=== PATIENT | male | born 1955 | race African-American/Black ===

== ENCOUNTER 2024-07-05 18:42 | Inpatient (IN) | payer MEDICARE ==
[~2024-07-05] VITALS: Ht 182.9 cm; Wt 95.3 kg
[~2024-07-05 18:42] MED LIST: ASPI-1406 PO; ATOR40TA70 PO; CLOP-31 PO; FERR325T6 PO; METF-414 PO; METO25TA6 PO; NIFE90TA60 PO
[2024-07-05 20:00] VITALS: BP 163/50; PULSE 61; RESP 19; TEMP 36.4; O2SAT 100
[2024-07-05 21:00] VITALS: BP 160/101; PULSE 61; RESP 18; TEMP 36.5
[2024-07-05] MEDS ORDERED: HYDROXYCHLOROQUINE SULFATE 200MG TABLET PO SCH (21:00)
[2024-07-05] MEDS ORDERED: ACETAMINOPHEN 325MG TABLET PO PRN (21:30)
[2024-07-05] MEDS ORDERED: ONDANSETRON HCL 4MG/2ML INJ IV PRN (21:30)
[2024-07-05] MEDS ORDERED: DEXTROSE 50% WATER 50ML SYRINGE IV SCH (21:30)
[2024-07-05] MEDS ORDERED: DEXTROSE 50% WATER 50ML SYRINGE IV PRN (21:30)
[2024-07-05] MEDS ORDERED: ONDANSETRON HCL 4MG TABLET PO PRN (21:30)
[2024-07-05] MEDS: PREDNISONE 20MG TABLET PO SCH (23:39)
[2024-07-05] MEDS: HYDROXYCHLOROQUINE SULFATE 200MG TABLET PO SCH (23:40)
[2024-07-05] MEDS: PANTOPRAZOLE 40MG DR TABLET PO SCH (23:40)
[2024-07-05] MEDS: DICLOFENAC SODIUM 75MG DR TABLET PO SCH (23:40)
[2024-07-05] MEDS: METOPROLOL TARTRATE 25MG TABLET PO SCH (23:41)
[2024-07-05] MEDS: HYDRALAZINE HCL 25MG TABLET PO SCH (23:41)
[2024-07-06] VITALS: BP 163/59; PULSE 61; RESP 19; TEMP 36.4; O2SAT 100
[2024-07-06] MEDS ORDERED: SODIUM CHLORIDE 0.45% 1,000 ML IV SCH
[2024-07-06] MEDS ORDERED: METHYLPREDNISOLONE SOD SUCC 125MG/2ML (ACT-O-VIAL) IV SCH
[2024-07-06 04:00] VITALS: BP 145/65; PULSE 60; RESP 20; TEMP 36.6; O2SAT 100
[2024-07-06] MEDS: SUCRALFATE 1G TABLET PO SCH (05:46)
[2024-07-06] MEDS: BLOOD SUGAR DIAGNOSTIC STRIP TEST SCH (06:00)
[2024-07-06 06:40] LABS: BASOPHILS % 0.1 % (0.0-2.0); HEMATOCRIT. 34.7 % (42.0-52.0); HEMOGLOBIN. 11.4 g/dL (14.0-18.0); LYMPHOCYTES % 8.5 % (20.0-50.0); MEAN CORPUSCULAR HEMOGLOBIN 28.6 pg (28.0-32.0); MEAN CORPUSCULAR HGB CONC 32.7 g/dL (31.0-37.0); MEAN CORPUSCULAR VOLUME 87.5 fL (80.0-94.0); MONOCYTES % 3.9 % (2.0-8.0); NEUTROPHILS % 87.5 % (40.0-76.0); PLATELET 361 x1000/uL (130-400); RED BLOOD CELL COUNT 3.97 mill/uL (4.7-6.1); RED CELL DISTRIBUTION WIDTH 14.2 % (11.6-14.6); WHITE BLOOD COUNT 13.6 x1000/uL (4.5-11.0)
[2024-07-06 06:45] LABS: CHLORIDE 104 mEq/L (98-107); POTASSIUM 4.3 mEq/L (3.5-5.1); SODIUM 140 mEq/L (136-145)
[2024-07-06 06:47] LABS: CARBON DIOXIDE 29 mEq/L (21-32)
[2024-07-06 06:52] LABS: CREATININE 0.7 mg/dL (0.6-1.3); GLUCOSE 117 mg/dL (70-105); UREA NITROGEN BLOOD 41 mg/dL (9-23)
[2024-07-06 06:54] LABS: ALANINE AMINOTRANSFERASE 241 IU/L (10-49); ALBUMIN 3.3 g/dL (3.2-4.8); ASPARTATE AMINOTRANSFERASE 167 IU/L (<34); PREALBUMIN 16.4 mg/dl (10.0-40.0)
[2024-07-06 06:55] LABS: BILIRUBIN TOTAL 0.4 mg/dL (0.1-1.0); PROTEIN TOTAL 6.6 g/dL (6.0-8.3)
[2024-07-06] MEDS: FUROSEMIDE 20MG/2ML VIAL IVP SCH (07:03)
[2024-07-06 07:05] LABS: CREATINE KINASE 2202 IU/L (46-171)
[2024-07-06 08:00] VITALS: BP 150/51; PULSE 58; RESP 18; TEMP 36.7; O2SAT 98
[2024-07-06] MEDS ORDERED: SODIUM CHLORIDE 0.9% 1,000 ML IV SCH (08:30)
[2024-07-06] MEDS: ASPIRIN 81MG TABLET PO SCH (08:32)
[2024-07-06] MEDS: FOLIC ACID 1MG TABLET PO SCH (08:34)
[2024-07-06] MEDS: FAMOTIDINE 20MG TABLET PO SCH (08:36)
[2024-07-06] MEDS: INSULIN LISPRO 100 UNITS/ML SUBCUT SCH (08:40)
[2024-07-06] MEDS ORDERED: DICLOFENAC SODIUM 75MG DR TABLET PO SCH (09:00)
[2024-07-06] MEDS ORDERED: FOLIC ACID 1MG TABLET PO SCH (09:00)
[2024-07-06] MEDS ORDERED: DEXTROSE 50% WATER 50ML SYRINGE IV PRN (12:30)
[2024-07-06] MEDS: CLOPIDOGREL 75MG TABLET PO SCH (16:27)
[2024-07-06] MEDS: LOSARTAN 25 MG TABLET PO SCH (18:26)
[2024-07-06 20:00] VITALS: BP 140/59; PULSE 59; RESP 17; TEMP 35.6; O2SAT 100
[2024-07-07 08:00] VITALS: BP 147/60; PULSE 51; RESP 19; TEMP 36.5; O2SAT 98
[2024-07-07 08:13] LABS: EOSINOPHILS % 0.1 % (0.0-5.0); HEMATOCRIT. 35.8 % (42.0-52.0); HEMOGLOBIN. 11.8 g/dL (14.0-18.0); LYMPHOCYTES % 12.9 % (20.0-50.0); MEAN CORPUSCULAR HEMOGLOBIN 28.8 pg (28.0-32.0); MEAN CORPUSCULAR HGB CONC 32.9 g/dL (31.0-37.0); MEAN CORPUSCULAR VOLUME 87.4 fL (80.0-94.0); MEAN PLATELET VOLUME 9.4 fl (7.4-10.4); MONOCYTES % 2.1 % (2.0-8.0); NEUTROPHILS % 84.9 % (40.0-76.0); PLATELET 354 x1000/uL (130-400); WHITE BLOOD COUNT 9.9 x1000/uL (4.5-11.0)
[2024-07-07] MEDS: FUROSEMIDE 20MG TABLET PO SCH (08:18)
[2024-07-07 08:26] LABS: CHLORIDE 102 mEq/L (98-107); POTASSIUM 4.7 mEq/L (3.5-5.1); SODIUM 142 mEq/L (136-145)
[2024-07-07 08:27] LABS: CARBON DIOXIDE 32 mEq/L (21-32)
[2024-07-07 08:32] LABS: CREATININE 0.7 mg/dL (0.6-1.3); GLUCOSE 116 mg/dL (70-105); UREA NITROGEN BLOOD 36 mg/dL (9-23)
[2024-07-07 08:34] LABS: ALANINE AMINOTRANSFERASE 235 IU/L (10-49); ALBUMIN 3.4 g/dL (3.2-4.8); ASPARTATE AMINOTRANSFERASE 149 IU/L (<34); BILIRUBIN DIRECT 0.1 mg/dL (<=3.0); BILIRUBIN TOTAL 0.4 mg/dL (0.1-1.0); PROTEIN TOTAL 6.7 g/dL (6.0-8.3); THYROID STIMULATING HORMONE 1.57 uIU/mL (0.55-4.78)
[2024-07-07 11:31] LABS: CALCIUM 9.2 mg/dL (8.7-10.4)
[2024-07-07 11:49] LABS: CREATINE KINASE 1989 IU/L (46-171)
[2024-07-07 20:00] VITALS: BP 146/44; PULSE 58; RESP 19; TEMP 36.5; O2SAT 97
[2024-07-08 07:16] LABS: HEMOGLOBIN. 11.8 g/dL (14.0-18.0); LYMPHOCYTES % 10.2 % (20.0-50.0); MEAN CORPUSCULAR HEMOGLOBIN 28.9 pg (28.0-32.0); MEAN CORPUSCULAR HGB CONC 32.9 g/dL (31.0-37.0); MEAN CORPUSCULAR VOLUME 87.9 fL (80.0-94.0); MEAN PLATELET VOLUME 9.3 fl (7.4-10.4); MONOCYTES % 2.2 % (2.0-8.0); NEUTROPHILS % 87.6 % (40.0-76.0); PLATELET 336 x1000/uL (130-400); RED CELL DISTRIBUTION WIDTH 14.1 % (11.6-14.6); WHITE BLOOD COUNT 9.3 x1000/uL (4.5-11.0)
[2024-07-08 07:22] LABS: CHLORIDE 106 mEq/L (98-107); POTASSIUM 4.5 mEq/L (3.5-5.1); SODIUM 142 mEq/L (136-145)
[2024-07-08 07:24] LABS: CALCIUM 9.1 mg/dL (8.7-10.4); CARBON DIOXIDE 30 mEq/L (21-32)
[2024-07-08 07:29] LABS: CREATININE 0.6 mg/dL (0.6-1.3); GLUCOSE 139 mg/dL (70-105)
[2024-07-08 07:30] LABS: UREA NITROGEN BLOOD 38 mg/dL (9-23)
[2024-07-08 07:31] LABS: ALANINE AMINOTRANSFERASE 223 IU/L (10-49); ALBUMIN 3.2 g/dL (3.2-4.8); ASPARTATE AMINOTRANSFERASE 144 IU/L (<34)
[2024-07-08 07:32] LABS: BILIRUBIN TOTAL 0.3 mg/dL (0.1-1.0); PROTEIN TOTAL 6.1 g/dL (6.0-8.3)
[2024-07-08 07:36] LABS: BILIRUBIN DIRECT < 0.1 mg/dL (<=3.0)
[2024-07-08 08:00] VITALS: BP 172/65; PULSE 63; RESP 18; TEMP 36.6; O2SAT 100
[2024-07-08] MEDS: ERGOCALCIFEROL 50000UNITS CAPSULE PO SCH (12:19)
[2024-07-08] MEDS: ENOXAPARIN 40MG/0.4ML SYR SUBCUT SCH (14:50)
[2024-07-08 20:00] VITALS: BP 158/58; PULSE 67; RESP 18; TEMP 36.6; O2SAT 98
[2024-07-09 08:00] VITALS: BP 145/51; PULSE 59; RESP 18; TEMP 36.1; O2SAT 100
[2024-07-09 13:56] LABS: ALANINE AMINOTRANSFERASE 267 IU/L (10-49); ALBUMIN 3.5 g/dL (3.2-4.8); ASPARTATE AMINOTRANSFERASE 192 IU/L (<34); BILIRUBIN DIRECT 0.1 mg/dL (<=3.0); BILIRUBIN TOTAL 0.4 mg/dL (0.1-1.0); PROTEIN TOTAL 6.8 g/dL (6.0-8.3)
[2024-07-09 14:07] LABS: CREATINE KINASE 3243 IU/L (46-171)
[2024-07-09 20:00] VITALS: BP 165/50; PULSE 63; RESP 19; TEMP 36.7; O2SAT 99
[2024-07-10] VITALS: BP 102/56
[2024-07-10 05:32] VITALS: BP 153/53; PULSE 56
[2024-07-10 07:16] LABS: CREATINE KINASE 2478 IU/L (46-171)
[2024-07-10 07:58] VITALS: BP 150/48; PULSE 53; RESP 17; TEMP 36.6; O2SAT 100
[2024-07-10] MEDS: PREDNISONE 20MG TABLET PO SCH (09:55)
[2024-07-10 19:55] LABS: CLARITY URINE CLEAR (CLEAR); COLOR URINE YELLOW (YELLOW); GLUCOSE URINE NEGATIVE (NEGATIVE); KETONES URINE NEGATIVE (NEGATIVE); LEUKOCYTE ESTERASE URINE NEGATIVE (NEGATIVE); NITRITE URINE NEGATIVE (NEGATIVE); OCCULT BLOOD URINE NEGATIVE (NEGATIVE); PROTEIN URINE TRACE (NEGATIVE); SPECIFIC GRAVITY URINE 1.021 (1.005-1.030); UROBILINOGEN URINE 0.2 E.U./dL (0.2-1.0)
[2024-07-10 20:00] VITALS: BP 169/49; PULSE 60; RESP 18; TEMP 36.6; O2SAT 98
[2024-07-10 20:08] LABS: BACTERIA URINE NONE SEEN; RBC URINE 0-2 /hpf (0-2); SQUAMOUS EPITHELIAL CELL URINE RARE /lpf (RARE/1+); WBC URINE NONE SEEN /hpf (0-2)
[2024-07-11 08:00] VITALS: BP 139/46; PULSE 61; RESP 18; TEMP 36.6; O2SAT 95
[2024-07-11] MEDS: METHOTREXATE SODIUM 2 . 5MG TABLET PO SCH (08:14)
[2024-07-11] MEDS ORDERED: METHOTREXATE SODIUM 2 . 5MG TABLET PO SCH ×3 (09:00→22:00)
[2024-07-11 20:00] VITALS: BP 139/51; PULSE 59; RESP 17; TEMP 36.3; O2SAT 99
[2024-07-12 08:00] VITALS: BP 154/45; PULSE 64; RESP 18; TEMP 36.3; O2SAT 98
[2024-07-12 08:07] LABS: CREATINE KINASE 2283 IU/L (46-171)
[2024-07-12 20:00] VITALS: BP 123/56; PULSE 57; RESP 18; TEMP 36.4; O2SAT 99
[2024-07-13 08:00] VITALS: BP 136/79; PULSE 63; RESP 19; TEMP 36.4; O2SAT 100
[2024-07-13 20:00] VITALS: BP 130/52; PULSE 67; RESP 18; TEMP 36.7; O2SAT 99
[2024-07-14 08:00] VITALS: BP 125/80; PULSE 98; RESP 18; TEMP 36.4; O2SAT 99
[2024-07-14 13:28] LABS: EOSINOPHILS % 0.5 % (0.0-5.0); HEMATOCRIT. 34.7 % (42.0-52.0); HEMOGLOBIN. 11.2 g/dL (14.0-18.0); LYMPHOCYTES % 12.6 % (20.0-50.0); MEAN CORPUSCULAR HEMOGLOBIN 28.5 pg (28.0-32.0); MEAN CORPUSCULAR HGB CONC 32.2 g/dL (31.0-37.0); MEAN CORPUSCULAR VOLUME 88.5 fL (80.0-94.0); MONOCYTES % 8.3 % (2.0-8.0); NEUTROPHILS % 78.6 % (40.0-76.0); PLATELET 342 x1000/uL (130-400); RED BLOOD CELL COUNT 3.92 mill/uL (4.7-6.1); RED CELL DISTRIBUTION WIDTH 14.3 % (11.6-14.6); WHITE BLOOD COUNT 12.2 x1000/uL (4.5-11.0)
[2024-07-14 13:54] LABS: CHLORIDE 103 mEq/L (98-107); SODIUM 140 mEq/L (136-145)
[2024-07-14 13:55] LABS: CALCIUM 9.2 mg/dL (8.7-10.4); CARBON DIOXIDE 28 mEq/L (21-32)
[2024-07-14 14:00] LABS: CREATININE 0.5 mg/dL (0.6-1.3); GLUCOSE 115 mg/dL (70-105); UREA NITROGEN BLOOD 29 mg/dL (9-23)
[2024-07-14 14:02] LABS: ALANINE AMINOTRANSFERASE 286 IU/L (10-49); ALBUMIN 3.3 g/dL (3.2-4.8); ASPARTATE AMINOTRANSFERASE 212 IU/L (<34); BILIRUBIN TOTAL 0.5 mg/dL (0.1-1.0); CREATINE KINASE > 1300 IU/L (46-171); PROTEIN TOTAL 6.3 g/dL (6.0-8.3)
[2024-07-14 20:00] VITALS: BP 151/54; PULSE 65; RESP 18; TEMP 36.8; O2SAT 99
[2024-07-15 08:00] VITALS: BP_SYST 148; BP_SYST 149; BP_DIAS 86; BP_DIAS 88; PULSE 52; PULSE 75; RESP 18; TEMP 36.5; O2SAT 100
[2024-07-15 20:00] VITALS: BP 164/47; PULSE 64; RESP 19; TEMP 36.7; O2SAT 99
[2024-07-16] VITALS: BP 141/55; PULSE 62
[2024-07-16] MEDS: CLONIDINE 0.1MG TABLET PO PRN (05:50)
[2024-07-16 08:00] VITALS: BP 128/49; PULSE 51; RESP 19; TEMP 36.1; O2SAT 99
[2024-07-16 12:54] LABS: ALANINE AMINOTRANSFERASE 288 IU/L (10-49); ALBUMIN 3.5 g/dL (3.2-4.8); ASPARTATE AMINOTRANSFERASE 205 IU/L (<34); BILIRUBIN DIRECT 0.2 mg/dL (<=3.0); BILIRUBIN TOTAL 0.7 mg/dL (0.1-1.0); PROTEIN TOTAL 6.5 g/dL (6.0-8.3)
[2024-07-16 13:09] LABS: HEPATITIS B SURFACE ANTIGEN NEGATIVE (Negative)
[2024-07-16 13:29] LABS: HEPATITIS A AB IGM NEGATIVE (Negative)
[2024-07-16 13:30] LABS: HEPATITIS B CORE AB IGM NEGATIVE (Negative)
[2024-07-16 13:31] LABS: HEPATITIS C AB NON REACTIVE (Neg) (Negative)
[2024-07-16 20:00] VITALS: BP 115/71; PULSE 55; RESP 19; TEMP 36.3; O2SAT 100
[2024-07-17 08:00] VITALS: BP 135/41; PULSE 58; RESP 18; TEMP 36.3; O2SAT 100
[2024-07-17] MEDS ORDERED: LACTULOSE 20G/30ML UDC PO PRN (19:00)
[2024-07-17 20:00] VITALS: BP 177/64; PULSE 67; RESP 18; TEMP 36.7; O2SAT 99
[2024-07-18 08:00] VITALS: BP 165/55; PULSE 63; RESP 19; TEMP 35.9; O2SAT 100
[2024-07-18 10:02] LABS: EOSINOPHILS % 0.3 % (0.0-5.0); HEMATOCRIT. 35.4 % (42.0-52.0); HEMOGLOBIN. 11.3 g/dL (14.0-18.0); LYMPHOCYTES % 17.8 % (20.0-50.0); MEAN CORPUSCULAR HGB CONC 31.8 g/dL (31.0-37.0); MEAN CORPUSCULAR VOLUME 88.1 fL (80.0-94.0); MEAN PLATELET VOLUME 8.4 fl (7.4-10.4); MONOCYTES % 9.1 % (2.0-8.0); NEUTROPHILS % 72.8 % (40.0-76.0); PLATELET 279 x1000/uL (130-400); RED BLOOD CELL COUNT 4.02 mill/uL (4.7-6.1); RED CELL DISTRIBUTION WIDTH 14.3 % (11.6-14.6); WHITE BLOOD COUNT 12.9 x1000/uL (4.5-11.0)
[2024-07-18 10:10] LABS: CHLORIDE 103 mEq/L (98-107); SODIUM 142 mEq/L (136-145)
[2024-07-18 10:11] LABS: CALCIUM 9.3 mg/dL (8.7-10.4); CARBON DIOXIDE 31 mEq/L (21-32)
[2024-07-18 10:16] LABS: ALANINE AMINOTRANSFERASE 287 IU/L (10-49); CREATININE 0.6 mg/dL (0.6-1.3); GLUCOSE 91 mg/dL (70-105); UREA NITROGEN BLOOD 30 mg/dL (9-23)
[2024-07-18 10:17] LABS: ASPARTATE AMINOTRANSFERASE 192 IU/L (<34)
[2024-07-18 10:18] LABS: ALBUMIN 3.5 g/dL (3.2-4.8); CREATINE KINASE > 1300 IU/L (46-171)
[2024-07-18 10:19] LABS: BILIRUBIN TOTAL 0.5 mg/dL (0.1-1.0); PROTEIN TOTAL 6.6 g/dL (6.0-8.3)
[2024-07-18] MEDS: AMLODIPINE 5MG TABLET PO SCH (13:30)
[2024-07-18 20:05] VITALS: BP 146/51; PULSE 63; RESP 20; TEMP 36.1; O2SAT 100
[2024-07-19 08:00] VITALS: BP 139/48; PULSE 58; RESP 18; TEMP 35.7; O2SAT 100
[2024-07-19 09:15] VITALS: BP 162/57
[2024-07-19 09:20] VITALS: BP 205/72
[2024-07-19 11:27] LABS: MEAN PLATELET VOLUME 8.6 fl (7.4-10.4); WHITE BLOOD COUNT 12.6 x1000/uL (4.5-11.0)
[2024-07-19 11:49] LABS: BASOPHILS % 0.1 % (0.0-2.0); EOSINOPHILS % 0.4 % (0.0-5.0); HEMOGLOBIN. 11.9 g/dL (14.0-18.0); MEAN CORPUSCULAR HEMOGLOBIN 28.4 pg (28.0-32.0); MEAN CORPUSCULAR HGB CONC 32.2 g/dL (31.0-37.0); MEAN CORPUSCULAR VOLUME 88.2 fL (80.0-94.0); MONOCYTES % 9.1 % (2.0-8.0); NEUTROPHILS % 70.4 % (40.0-76.0); PLATELET 306 x1000/uL (130-400); RED CELL DISTRIBUTION WIDTH 14.6 % (11.6-14.6)
[2024-07-19 11:59] LABS: DIFFERENTIAL COMMENT 1
[2024-07-19 14:30] VITALS: BP 165/52
[2024-07-19 14:32] VITALS: BP 197/87
[2024-07-19] MEDS: LOSARTAN 100 MG TABLET PO SCH (21:00)
[2024-07-19] MEDS: AMLODIPINE 5MG TABLET PO SCH (21:00)
[2024-07-19 21:47] VITALS: BP 114/57; PULSE 63; RESP 19; TEMP 36.3; O2SAT 99
[2024-07-20 08:00] VITALS: BP 134/49; PULSE 63; RESP 18; TEMP 36.3; O2SAT 98
[2024-07-20] MEDS: PREDNISONE 20MG TABLET PO SCH (09:14)
[2024-07-20] MEDS ORDERED: ASPI-1497 MT (09:22)
[2024-07-20] MEDS ORDERED: P20 MT ×2 (09:22→10:35)
[2024-07-20] MEDS ORDERED: CLOP-31 MT (09:22)
[2024-07-20] MEDS ORDERED: FURO-152 MT (09:22)
[2024-07-20] MEDS ORDERED: LOSA-415 MT (09:22)
[2024-07-20] MEDS ORDERED: METH2.5T MT (09:22)
[2024-07-20] MEDS ORDERED: HYDR25TA78 MT (09:22)
[2024-07-20] MEDS ORDERED: AMLO5TAB88 MT (09:22)
[2024-07-20] MEDS ORDERED: HYDR200T80 MT (09:22)
[2024-07-20 09:51] LABS: BASOPHILS % 0.2 % (0.0-2.0); EOSINOPHILS % 0.4 % (0.0-5.0); HEMATOCRIT. 37.7 % (42.0-52.0); HEMOGLOBIN. 11.9 g/dL (14.0-18.0); LYMPHOCYTES % 23.6 % (20.0-50.0); MEAN CORPUSCULAR HGB CONC 31.5 g/dL (31.0-37.0); MEAN CORPUSCULAR VOLUME 88.7 fL (80.0-94.0); MEAN PLATELET VOLUME 8.4 fl (7.4-10.4); MONOCYTES % 7.8 % (2.0-8.0); PLATELET 293 x1000/uL (130-400); RED BLOOD CELL COUNT 4.25 mill/uL (4.7-6.1); RED CELL DISTRIBUTION WIDTH 14.7 % (11.6-14.6); WHITE BLOOD COUNT 11.3 x1000/uL (4.5-11.0)
[2024-07-20] MEDS ORDERED: DICL50TA9 PO (10:38)
[2024-07-20] MEDS ORDERED: FOLI-43 PO (10:39)
[2024-07-20] MEDS ORDERED: METH2.5T PO (10:40)
[2024-07-20 11:15] VITALS: BP 134/78; PULSE 88; TEMP 97.8; O2SAT 98
[2024-07-20] MEDS ORDERED: DICL75TA5 PO (12:10)
[2024-07-20] MEDS ORDERED: HYDRALAZINE 20MG/ML VIAL IV PRN (15:45)
[2024-07-20 19:53] VITALS: BP 109/70; PULSE 56; RESP 20; TEMP 36.1; O2SAT 99
[2024-07-21 08:00] VITALS: BP 158/46; PULSE 65; RESP 19; TEMP 36.1; O2SAT 100
[2024-07-21 14:30] VITALS: BP_SYST 153; BP_SYST 219; BP_DIAS 48; BP_DIAS 80
[2024-07-21] MEDS: HYDRALAZINE 10 MG in SODIUM CHLORIDE 0.9% 49.5 ML IV PRN (15:48)
[2024-07-21 17:43] VITALS: BP 147/35
[2024-07-21 20:00] VITALS: BP 139/48; PULSE 65; RESP 65; TEMP 36.7; O2SAT 99
[2024-07-21] MEDS: HYDRALAZINE HCL 50MG TABLET PO SCH (21:36)
[2024-07-22] VITALS (11 sets, daily range): BP systolic 119–201; BP diastolic 40–71; PULSE 60–63; RESP 18–20; TEMP 36.4; O2SAT 98–100
[2024-07-22 06:53] LABS: BASOPHILS % 0.1 % (0.0-2.0); EOSINOPHILS % 0.1 % (0.0-5.0); HEMATOCRIT. 36.3 % (42.0-52.0); HEMOGLOBIN. 11.8 g/dL (14.0-18.0); LYMPHOCYTES % 12.2 % (20.0-50.0); MEAN CORPUSCULAR HEMOGLOBIN 28.6 pg (28.0-32.0); MEAN CORPUSCULAR HGB CONC 32.4 g/dL (31.0-37.0); MEAN CORPUSCULAR VOLUME 88.2 fL (80.0-94.0); MEAN PLATELET VOLUME 8.5 fl (7.4-10.4); MONOCYTES % 4.3 % (2.0-8.0); NEUTROPHILS % 83.3 % (40.0-76.0); PLATELET 294 x1000/uL (130-400); RED BLOOD CELL COUNT 4.11 mill/uL (4.7-6.1); RED CELL DISTRIBUTION WIDTH 14.9 % (11.6-14.6); WHITE BLOOD COUNT 8.4 x1000/uL (4.5-11.0)
[2024-07-22 08:48] LABS: CHLORIDE 104 mEq/L (98-107); POTASSIUM 4.3 mEq/L (3.5-5.1); SODIUM 143 mEq/L (136-145)
[2024-07-22 08:49] LABS: CALCIUM 9.3 mg/dL (8.7-10.4); CARBON DIOXIDE 31 mEq/L (21-32)
[2024-07-22 08:54] LABS: CREATININE 0.6 mg/dL (0.6-1.3); GLUCOSE 107 mg/dL (70-105); UREA NITROGEN BLOOD 27 mg/dL (9-23)
[2024-07-22] MEDS ORDERED: ISOSORBIDE MONONITRATE 60MG TABLET SR 24HR PO SCH (10:00)
[2024-07-22] MEDS: ISOSORBIDE MONONITRATE 30MG TABLET SR 24HR PO NR (10:33)
[2024-07-22] MEDS: ISOSORBIDE MONONITRATE 30MG TABLET SR 24HR PO SCH (16:00)
[2024-07-22] MEDS: ENOXAPARIN 30MG/0.3ML SYR SUBCUT SCH (20:49)
[2024-07-23] VITALS (10 sets, daily range): BP systolic 108–226; BP diastolic 35–87; PULSE 51–100; RESP 18–19; TEMP 36–36.4; O2SAT 96–100
[2024-07-23] MEDS: ISOSORBIDE MONONITRATE 60MG TABLET SR 24HR PO SCH (09:00)
[2024-07-23] MEDS: SPIRONOLACTONE 25MG TABLET PO SCH (09:00)
[2024-07-24 08:00] VITALS: BP 142/46; PULSE 58; RESP 18; TEMP 35.7; TEMP 36.2; O2SAT 100
[2024-07-24] MEDS: ISOSORBIDE MONONITRATE 30MG TABLET SR 24HR PO NR (11:42)
[2024-07-24 11:44] VITALS: BP_SYST 125; BP_SYST 152; BP_DIAS 45; BP_DIAS 56
[2024-07-24 14:15] VITALS: BP 129/44; PULSE 61
[2024-07-24 14:18] VITALS: BP 191/64; PULSE 91
[2024-07-24 20:00] VITALS: BP 128/43; PULSE 68; RESP 18; TEMP 36.7; O2SAT 99
[2024-07-25 08:00] VITALS: BP 141/54; PULSE 75; RESP 18; TEMP 36.3; O2SAT 100
[2024-07-25] MEDS: ISOSORBIDE MONONITRATE 30MG TABLET SR 24HR PO SCH (08:29)
[2024-07-25 20:00] VITALS: BP 140/46; PULSE 83; RESP 18; TEMP 36.6; O2SAT 99
[2024-07-26] VITALS (14 sets, daily range): BP systolic 136–203; BP diastolic 46–98; PULSE 71–107; RESP 18; TEMP 36.3–36.8; O2SAT 98–99
[2024-07-26] MEDS ORDERED: ISOSORBIDE MONONITRATE 30MG TABLET SR 24HR PO SCH (21:00)
== END 2024-07-26 16:32 | disposition short-term general hospital (02) | DRG 64 ==
PROVIDERS: ADMIT Physical Medicine & Rehabilitation Spinal Cord Injury Medicine; ATTEND Internal Medicine
DX: I63.81 Other cerebral infarction due to occlusion or stenosis of small artery (principal); I21.4 Non-ST elevation (NSTEMI) myocardial infarction; L89.323 Pressure ulcer of left buttock, stage 3; L89.313 Pressure ulcer of right buttock, stage 3; M33.20 Polymyositis, organ involvement unspecified; N17.9 Acute kidney failure, unspecified; M33.90 Dermatopolymyositis, unspecified, organ involvement unspecified; I69.322 Dysarthria following cerebral infarction; D64.9 Anemia, unspecified; E11.9 Type 2 diabetes mellitus without complications; E78.5 Hyperlipidemia, unspecified; F32.A Depression, unspecified; I25.10 Atherosclerotic heart disease of native coronary artery without angina pectoris; E53.8 Deficiency of other specified B group vitamins; E55.9 Vitamin D deficiency, unspecified; N28.1 Cyst of kidney, acquired; I11.0 Hypertensive heart disease with heart failure; I16.0 Hypertensive urgency; I50.9 Heart failure, unspecified; M79.89 Other specified soft tissue disorders; R26.2 Difficulty in walking, not elsewhere classified; R53.81 Other malaise; R74.01 Elevation of levels of liver transaminase levels; I25.2 Old myocardial infarction; I69.320 Aphasia following cerebral infarction; Z82.49 Family history of ischemic heart disease and other diseases of the circulatory system; Z83.3 Family history of diabetes mellitus; Z91.81 History of falling; Z95.5 Presence of coronary angioplasty implant and graft; Z79.02 Long term (current) use of antithrombotics/antiplatelets; Z79.84 Long term (current) use of oral hypoglycemic drugs; Z79.899 Other long term (current) drug therapy
CPT/HCPCS: 36415; 76700; 80048; 80053; 80076; 81003; 82085; 82306; 82550; 82962; 83735; 84134; 84145; 84443; 85025; 86705; 86709; 87340; 92523; 92610; 93005; 97110; 97112; 97116; 97162; 97166; 97530; 97535; 97542; A4606; A6449; J0360; J1650; J1815; J1940; J7030; J7512; J8610